=== PATIENT | female | born 1940 | race African-American/Black ===

== ENCOUNTER 2023-06-21 13:43 | Emergency (ER) | payer MEDICARE ==
[2023-06-21] MEDS ORDERED: Ketorolac Tromethamine 30 MG/ML VIAL ONE (15:47)
== END 2023-06-21 16:01 | disposition home or self-care (01) ==
LOC: CSHERS 13:43
DX: M25.561 Pain in right knee (principal); M25.471 Effusion, right ankle; I10 Essential (primary) hypertension; E78.5 Hyperlipidemia, unspecified; Z79.899 Other long term (current) drug therapy
CPT/HCPCS: 96372; J1885